=== PATIENT | female | born 1985 | race Hispanic/Latino ===

== ENCOUNTER → 2016-09-15 | Outpatient (CLI) | payer OTHER ==
[~2016-09-15] MED LIST: HYDR-3812 PO; IBUP-1773 PO
--- NOTE | 2016-09-15 13:34 | Diagnostic Imaging Report ---
INDICATION: Pelvic pain. Followup assessment of previously demonstrated thickened endometrium. TECHNIQUE: Multiple real time hart scale sonographic images were obtained of the pelvis transabdominally and endovaginally. CORRELATION STUDY: 08/26/2016 FINDINGS: UTERUS/ENDOMETRIUM: Uterus measures 10.3 x 7.3 x 5.0 cm. The uterus has an unremarkable appearance. The endometrium remains abnormally thickened at 16. There is also an abnormal appearance with very heterogeneous echotexture present. There does appear to be some Doppler vascular signal present as well. RIGHT OVARY: 2.5 x 2.1 x 1.9 cm. Right ovary appearing unremarkable. LEFT OVARY: 2.9 x 2.5 x 3.3 cm. Left ovary appearing unremarkable. Color flow is demonstrated to both ovaries. No significant free pelvic fluid. IMPRESSION: 1. Endometrium does remain abnormally thickened with an irregular echotexture as well as some vascular flow. Findings are nonspecific. However, possibility of endometrial polyp, hyperplasia and/or endometrial malignancy is not excluded. Dictated by: Dictated on workstation # [id number]
== END ==
LOC: RAD 12:30
PROVIDERS: ATTEND Family Medicine
DX: R10.2 Pelvic and perineal pain (principal)
CPT/HCPCS: 76830; 76856

== ENCOUNTER 2016-10-27 09:16 | Outpatient (CLI) | payer OTHER ==
[~2016-10-27] VITALS: Ht 152.4 cm; Wt 72.6 kg
[2016-10-27 09:31] VITALS: BP 123/73
[2016-10-27 10:11] LABS: BASOPHILS % (AUTO) 0 % (0-10); EOSINOPHILS # (AUTO) 0.1 10^3/uL (0.0-0.3); EOSINOPHILS % (AUTO) 2 % (0-10); LYMPHOCYTES # (AUTO) 2.1 X 10^3 (1.0-4.0); LYMPHOCYTES % (AUTO) 39 % (12-44); MEAN CORPUSCULAR HEMOGLOBIN 26 PG (25-34); MEAN CORPUSCULAR HGB CONC 33 G/DL (32-36); MEAN CORPUSCULAR VOLUME 78 FL (80-99); MEAN PLATELET VOLUME 10.1 FL (7.4-10.4); MONOCYTES # (AUTO) 0.4 X 10^3 (0.0-1.0); MONOCYTES % (AUTO) 7 % (0-12); NEUTROPHILS # (AUTO) 2.9 X 10^3 (1.8-7.8); NEUTROPHILS % (AUTO) 52 % (42-75); PLATELET COUNT 285 10^3/uL (130-400); RED BLOOD COUNT 4.79 10^6/uL (4.35-5.85); RED CELL DISTRIBUTION WIDTH 14.6 % (10.0-14.5); WHITE BLOOD COUNT 5.5 10^3/uL (4.3-11.0)
[2016-10-28] MEDS ORDERED: IBUP-1773 PO (08:35)
[2016-10-28] MEDS ORDERED: HYDR-3812 PO (08:35)
== END 2016-10-27 09:55 | disposition home or self-care (01) ==
LOC: PREOP 09:16
PROVIDERS: ATTEND Obstetrics & Gynecology
DX: Z01.812 Encounter for preprocedural laboratory examination (principal); Z11.2 Encounter for screening for other bacterial diseases; R10.2 Pelvic and perineal pain; N94.6 Dysmenorrhea, unspecified; N92.0 Excessive and frequent menstruation with regular cycle; R93.8 Abnormal findings on diagnostic imaging of other specified body structures
CPT/HCPCS: 36415; 84703; 85025; 87081

== ENCOUNTER 2016-10-28 06:06 | Day surgery (SDC) | payer OTHER ==
[~2016-10-28] VITALS: Ht 152.4 cm; Wt 72.6 kg
--- OUTSIDE RECORDS SUMMARY | 2016-10-28 06:10 | XMS REPORT | Continuity of Care Document ---
Author Author [facility] Organization [facility] Address Unknown Phone Unavailable Allergies Medications Problems Date Dx Coded Attending Type Code Diagnosis Diagnosed By 07/14/2015 IBRAHIMA GAY MD Ot R10.9 07/15/2015 IBRAHIMA GAY MD Ot R10.9 07/16/2015 IBRAHIMA GAY MD Ot R10.9 07/22/2015 IBRAHIMA GAY MD Ot R10.2 03/10/2016 IBRAHIMA GAY MD Ot R10.9 UNSPECIFIED ABDOMINAL PAIN 03/10/2016 IBRAHIMA GAY MD Ot R10.2 PELVIC AND PERINEAL PAIN 03/10/2016 IBRAHIMA GAY MD Ot R10.2 PELVIC AND PERINEAL PAIN 09/10/2016 IBRAHIMA GAY MD Ot R10.2 PELVIC AND PERINEAL PAIN 09/16/2016 IBRAHIMA GAY MD Ot R10.2 PELVIC AND PERINEAL PAIN 09/29/2016 IBRAHIMA GAY MD Ot R10.2 PELVIC AND PERINEAL PAIN 09/29/2016 IBRAHIMA GAY MD Ot R10.2 PELVIC AND PERINEAL PAIN 10/20/2016 IBRAHIMA GAY MD Ot R10.9 UNSPECIFIED ABDOMINAL PAIN 10/20/2016 IBRAHIMA GAY MD Ot R10.2 PELVIC AND PERINEAL PAIN 10/20/2016 IBRAHIMA GAY MD Ot R10.2 PELVIC AND PERINEAL PAIN Procedures Results Test Result Range Complete blood count (CBC) with automated white blood cell (WBC) differential - 10/27/16 09:45 Blood leukocytes automated count (number/volume) 5.5 10*3/ uL 4.3-11.0 Blood erythrocytes automated count (number/volume) 4.79 10*6 /uL 4.35-5.85 Venous blood hemoglobin measurement (mass/volume) 12.2 g/dL 11.5-16.0 Blood hematocrit (volume fraction) 37 % 35-52 Automated erythrocyte mean corpuscular volume 78 [foz_us] 80-99 Automated erythrocyte mean corpuscular hemoglobin (mass per erythrocyte) 26 pg 25-34 Automated erythrocyte mean corpuscular hemoglobin concentration measurement ( mass/volume) 33 g/dL 32-36 Automated erythrocyte distribution width ratio 14.6 % 10.0-14.5 Automated blood platelet count (count/volume) 285 10*3/uL 130-400 Automated blood platelet mean volume measurement 10.1 [foz_ us] 7.4-10.4 Automated blood neutrophils/100 leukocytes 52 % 42-75 Automated blood lymphocytes/100 leukocytes 39 % 12-44 Blood monocytes/100 leukocytes 7 % 0-12 Automated blood eosinophils/100 leukocytes 2 % 0-10 Automated blood basophils/100 leukocytes 0 % 0-10 Blood neutrophils automated count (number/volume) 2.9 10*3 1.8-7.8 Blood lymphocytes automated count (number/volume) 2.1 10*3 1.0-4.0 Blood monocytes automated count (number/volume) 0.4 10*3 0.0-1.0 Automated eosinophil count 0.1 10*3/uL 0.0-0.3 Automated blood basophil count (count/volume) 0.0 10*3/uL 0.0-0.1 Blood type T Indirect antibody screen panel - 10/27/16 09:45 ABO+Rh group OP NRG Transfusion band number [id number] NRG Blood group antibody screen NEGATIVE NRG Urine beta human chorionic gonadotropin (hCG) measurement - 10/27/16 09:55 Urine beta human chorionic gonadotropin (hCG) measurement NEGATIVE NEGATIVE Encounters ACCT No. Visit Date/Time Discharge Status Pt. Type Provider Facility Loc./Unit Complaint [id number] 07/21/2015 10:21:00 2014 23:59:59 CLS Outpatient IBRAHIMA GAY MD [facility] RAD PELVIC PAIN [id number] 07/09/2015 09:48:00 2014 23:59:59 CLS Outpatient IBRAHIMA GAY MD [facility] RAD ABD PAIN [id number] 10/27/2016 10:55:00 Document Registration [id number] 10/27/2016 10:11:00 Document Registration [id number] 09/15/2016 12:30:00 ACT Outpatient IBRAHIMA GAY MD [facility] RAD PELVIC PAIN [id number] 08/26/2016 12:36:00 ACT Outpatient IBRAHIMA GAY MD [facility] RAD PELVIC PAIN
--- OUTSIDE RECORDS SUMMARY | 2016-10-28 06:10 | XMS REPORT | Continuity of Care Document ---
Author Author [facility] Organization [facility] Address Unknown Phone Unavailable Allergies Medications Problems [...] ABO+Rh group OP NRG Transfusion band number [id number] NRG Blood group antibody screen NEGATIVE NRG Urine beta human chorionic gonadotropin (hCG) measurement - 10/27/16 09:55 Urine beta human chorionic gonadotropin (hCG) measurement NEGATIVE NEGATIVE Encounters ACCT No. Visit Date/Time Discharge Status Pt. Type Provider Facility Loc./Unit Complaint [id number] 07/21/2015 10:21:00 2014 23:59:59 CLS Outpatient IBRAHIMA GAY MD [facility] RAD PELVIC PAIN [id number] 07/09/2015 09:48:00 2014 23:59:59 CLS Outpatient IBRAHIMA GAY MD [facility] RAD ABD PAIN [id number] 10/27/2016 10:55:00 Document Registration [id number] 10/27/2016 10:11:00 Document Registration [id number] 09/15/2016 12:30:00 ACT Outpatient IBRAHIMA GAY MD [facility] RAD PELVIC PAIN [id number] 08/26/2016 12:36:00 ACT Outpatient IBRAHIMA GAY MD [facility] RAD PELVIC PAIN
[2016-10-28] MEDS ORDERED: NS (IVPB) 50 ML ONE (06:19)
[2016-10-28] MEDS ORDERED: ceFAZolin 1,000 MG (ANCEF) VIAL ONE (06:19)
[2016-10-28 06:28] VITALS: BP 119/76
[2016-10-28] MEDS: LACTATED RINGERS 1,000 ML IV PRN ×2 (06:30→07:58)
--- NOTE | 2016-10-28 06:52 | Progress Note-Pre Operative ---
Pre-Operative Progress Note H&P Reviewed The H&P was reviewed, patient examined and no changes noted. Date H&P Reviewed: Oct 28, 2016 Time H&P Reviewed: 06:45 Pre-Operative Diagnosis: CPP, AUB, Dysmenorrhea, Dysparenia ADITI ASENCIO DO Oct 28, 2016 6:52 am
[2016-10-28] MEDS ORDERED: BUPIVACAINE 0.25% 30 ML (SENSORCAINE) VIAL ONE (06:59)
[2016-10-28] MEDS ORDERED: CATHETER FLUSH 10 ML SYR IV PRN (07:00)
[2016-10-28] MEDS ORDERED: ceFAZolin 1 GM/NS 50 ML IVPB IV ONE ×2 (07:00)
[2016-10-28] MEDS ORDERED: MIDAZOLAM 2 MG/2 ML (VERSED) VIAL ONE (07:07)
[2016-10-28] MEDS ORDERED: fentaNYL INJECTION 100 MCG/2 ML AMP ONE (07:07)
[2016-10-28] MEDS ORDERED: proPOfol 200 MG/20 ML (DIPRIVAN) VIAL IV ONE (07:32)
[2016-10-28] MEDS ORDERED: ONDANSETRON 4 MG/2 ML (SDV) Z0FRAN ONE ×2 (07:32→08:48)
[2016-10-28] MEDS ORDERED: ROCURONIUM 50 MG/5 ML (ZEMURON) VIAL IV ONE (07:32)
[2016-10-28] MEDS ORDERED: LACTATED RINGERS 1,000 ML IV ONE ×2 (07:32→07:53)
[2016-10-28] MEDS ORDERED: DEXAMETHASONE PF 10 MG/ML (DECADRON) VIAL ONE (07:32)
[2016-10-28] MEDS ORDERED: LIDOCAINE PF 2% 10 ML (XYLOCAINE) AMP ONE (07:54)
[2016-10-28] MEDS ORDERED: SEVOFLURANE (ULTANE) 15 ML INHAL SOLN ONE (08:29)
[2016-10-28] MEDS ORDERED: GLYCOPYRROLATE 0.2 MG/ML (ROBINUL) 2 ML VIAL ONE (08:29)
[2016-10-28] MEDS ORDERED: NEOSTIGMINE (BLOXIVERZ ) 1 MG/1ML 10 ML VIAL ONE (08:29)
[2016-10-28] MEDS ORDERED: D5 LR IV SOLUTION 1,000 ML IV SCH (08:32)
--- NOTE | 2016-10-28 08:34 | Discharge Inst-Women's Service ---
Discharge Inst-Women's Serv Depart Medication/Instructions New, Converted or Re-Newed RX: RX on Chart Consults/Follow Up Additional Follow Up: Yes Orders/Referrals Dr. Gates in 2-3 weeks Activity Activity: Activity as Tolerated Driving Instructions: No Driving for 1 Week NO SMOKING: NO SMOKING Nothing Inside Vagina: No Douching, No Moca, No Tampons Diet Discharge Diet: No Restrictions Symptoms to Report to : Bleeding Excessive, Pain Increased, Fever Over 101 Degrees F, Vaginal Bleeding Increase, Questions/Concerns For Any Problems or Questions: Contact Your Physician Skin/Wound Care Infection Signs and Symptoms: Increased Redness, Foul Odor of Wound, Increased Drainage, Skin Itchy or Has a Rash, Increased Swelling, Temperature Above 101 F Operative Area Clean and Dry: Keep Incision Clean/Dry Stitches/Pavithra/Dermabond: Dermabond, Care of Stitches Bathing Instructions: ADITI Smith DO Oct 28, 2016 08:34
[2016-10-28] MEDS ORDERED: IBUP-1773 PO (08:35)
[2016-10-28] MEDS ORDERED: HYDR-3812 PO (08:35)
[2016-10-28] MEDS ORDERED: KETOROLAC 30 MG/ML VIAL ONE (08:42)
[2016-10-28] MEDS ORDERED: fentaNYL INJECTION 100 MCG/2 ML AMP IV PRN (08:45)
[2016-10-28] MEDS ORDERED: HYDROcodone/APAP 5 MG/325 MG (LORTAB) TAB PO PRN (08:45)
[2016-10-28] MEDS ORDERED: ONDANSETRON 4 MG/2 ML (SDV) Z0FRAN IV ONE (08:45)
[2016-10-28] MEDS ORDERED: ONDANSETRON 4 MG/2 ML (SDV) Z0FRAN IVP PRN (08:45)
[2016-10-28] MEDS ORDERED: KETOROLAC 30 MG/ML VIAL IVP ONE (08:45)
[2016-10-28] MEDS: morphine INJ 10 MG/ML 1ML (SYR OR VIAL) IV PRN ×2 (08:46→08:52)
[2016-10-28 09:30] VITALS: BP 125/63
[2016-10-28 09:57] VITALS: BP 127/74
[2016-10-28 10:30] VITALS: BP 124/74
[2016-10-28 12:30] VITALS: BP 124/74
[2016-10-28 12:45] VITALS: BP 124/74
--- NOTE | 2016-10-29 11:39 | OPERATIVE REPORT ---
PROCEDURE PHYSICIAN: HONG ASENCIO DATE OF PROCEDURE: 10/28/2016 PREOPERATIVE DIAGNOSIS: 1. 31-year-old female with chronic pelvic pain. 2. Abnormal uterine bleeding. 3. Dysmenorrhea. 4. Dyspareunia. POSTOPERATIVE DIAGNOSES: 1. 31-year-old female with chronic pelvic pain. 2. Abnormal uterine bleeding. 3. Dysmenorrhea. 4. Dyspareunia. 5. Evidence of endometriosis down the left uterosacral ligament and the left broad ligament. PROCEDURE: D&C with laparoscopic ablation of endometriosis. SURGEON: Dr. Hong Asencio. BRIM PLATER: Nieves Shine APR ANESTHESIA: General endotracheal. ESTIMATED BLOOD LOSS: 50 mL. URINE OUTPUT: 400 mL FLUIDS: 1500 mL of lactated ringer solution. FINDINGS: Normal appearing uterus with a hypervascular ectropion that bleeds to touch. Otherwise grossly normal appearing cervix, normal appearing uterus with some evidence of hyperemic changes on the serosal surface of the fundus as well as endometriosis implants along the serosal surface of the fundus and the left uterosacral ligament at the base all the way up to the base of the broad ligament on the left side. Not incorporating the left ovarian fossa SPECIMEN SENT: Endometrial curettings. INDICATIONS FOR THE PROCEDURE: This 31-year-old female was a consultation to my office for chronic issues with ongoing pelvic pain and dyspareunia. She also reports irregular heavy bleeding. She underwent ultrasound on 2 separate occasions which showed no change in her uterus or was there endometrial thickness. However, due to her abnormal bleeding and attempts at more conservative measures, she wished to proceed with more definitive measures. I discussed with the patient the step by step process and diagnosis would also include laparoscopy at this point as well as D&C. The procedures itself was discussed with the patient in detail as well as the risk, alternatives and doing nothing. The patient wished to proceed despite all risks described. This is all done using interpretation phone in the office. Once all the patient's questions were answered to her satisfaction, consent was obtained and she was taken to operating room. OPERATIVE REPORT IN DETAIL: Once in the operating room, general anesthesia was found to be adequate. She is placed in dorsal lithotomy position, prepped and draped in the normal sterile fashion. She was first examined under anesthesia. The uterus is not enlarged, freely mobile. There is no adnexal fullness or masses appreciated on bimanual examination. A Felix catheter was placed using sterile technique. A weighted speculum is inserted in the patient's vagina. A right angle retractor is used to visualize the cervix. It is grasped at 12 o'clock position using a long Allis clamp. I then gently sound the uterine cavity depth which was found to be 8 cm. I then gently dilate the cervix using Hegar dilators and perform a gentle curettage of the endometrial cavity using a medium endometrial curette. Curettings collected are sent as endometrial curettings. I then place a ELLE uterine manipulator into the cervix. However after I go to remove the Allis clamp there is a significant amount of bleeding noted from the ectropion margin of the cervix. I make this area hemostatic using hand held Bovie cautery, after which there is no active bleeding noted from the area that I previously mentioned. I then remove all the instruments from the patient's vagina short of the Kronner uterine manipulator and take my attention to the abdomen after a change of gloves is performed. Infraumbilically I infiltrate this area using 0.25% Marcaine and make a 5 mm incision and direct a Veress needle through this incision until intraperitoneal placement is confirmed using saline drop test. I then proceed with insufflation using CO2 gas, opening pressure of 5 mmHg is noted. I proceed to maximum pressure of 15 mmHg at which point I remove the Veress needle and introduce a 5 mm blunt trocar through this incision and intraperitoneal placement is confirmed using a laparoscope. I briefly scan the upper abdominal anatomy, which appears normal. I document it with pictures I then have the patient placed in steep Trendelenburg and I am able to visualize the pelvic anatomy as described in my findings above. I then, use a separate trocar site that I place suprapubically 5 mm as well in a similar fashion. Use hook cautery to cauterize the mentioned endometriosis implants after which there is no active bleeding noted from any my dissection planes. I then copiously irrigate the pelvis using normal saline. Once again, no active bleeding is noted from any my dissection planes. I then removed the suprapubic trocar under direct visualization of the laparoscope. There is no active bleeding noted from this site. I then release insufflation from my infraumbilical trocar site and leave this in place until the majority of the intraperitoneal gas is removed, I then remove this trocar and proceed with closing the incision using 4-0 Monocryl in an interrupted subcuticular stitches. Dermabond is applied to the incisions and Band-Aids are placed over these. The patient tolerated the procedure well and was taken to recovery area in stable condition. Felix catheter is removed after the procedure is complete. Lap and sponge counts were correct at the end of the procedure. Instrument count is correct as well. 1 gram of Ancef was given preoperatively for infection prophylaxis. Job ID: [id number] Dictated Date: 10/28/2016 09:34:47 Size Changer Date: 10/29/2016 11:24:52 / didi
== END 2016-10-28 12:50 | disposition home or self-care (01) ==
LOC: SDC 06:06
PROVIDERS: ATTEND Obstetrics & Gynecology
DX: N80.3 Endometriosis of pelvic peritoneum (principal); N94.6 Dysmenorrhea, unspecified; N94.10 Unspecified dyspareunia
CPT/HCPCS: 86850; 86900; 86901; 88305; 94664

== ENCOUNTER → 2017-12-05 | Outpatient (CLI) | payer OTHER ==
[~2017-12-05] MED LIST changes: +ACHD5005 PO; -HYDR-3812 PO
--- NOTE | 2017-12-05 15:26 | Diagnostic Imaging Report ---
INDICATION: Abnormal uterine bleeding. FINDINGS: Transabdominal and transvaginal pelvic sonography was performed. The uterus measures 8.9 x 5.8 x 5.1 cm. No myometrial mass is detected. The majority of the endometrium appears to be of normal thickness at approximately 6 mm. However, there appears to be a questionable mixed echogenicity mass in the fundal endometrium measuring 15 mm x 11 mm x 15 mm. No internal blood flow is seen. The ovaries are not visualized. No adnexal mass or free fluid is detected. IMPRESSION: Endometrial mass in the region of the fundal endometrium. This most likely represents a polyp. Endometrial neoplasm cannot be entirely excluded. No other abnormalities are seen. Dictated by: Dictated on workstation # [id number]
== END ==
LOC: RAD 12:20
PROVIDERS: ATTEND Obstetrics & Gynecology
DX: N93.9 Abnormal uterine and vaginal bleeding, unspecified (principal); N85.8 Other specified noninflammatory disorders of uterus
CPT/HCPCS: 76830; 76856

== ENCOUNTER 2018-01-06 06:10 | Day surgery (SDC) | payer OTHER ==
[~2018-01-06] VITALS: Ht 152.4 cm; Wt 78.9 kg
--- OUTSIDE RECORDS SUMMARY | 2018-01-06 06:25 | XMS REPORT ---
Author Author IBRAHIMA GAY [facility] e[employer] Address Unknown Phone Unavailable Care Team Providers Care Lime Hide Inspector Name Role Phone IBRAHIMA GAY Unavailable Allergies No Known Allergies Problems Problem Type Condition Code Onset Dates Condition Status Assessment Pelvic pain in female R10.2 Active Assessment Calculus of gallbladder without cholecystitis without obstruction K80.20 Active Medications No Known Medications Results No Known Results Summary Purpose eClinicalWorks Submission
--- OUTSIDE RECORDS SUMMARY | 2018-01-06 06:25 | XMS REPORT ---
Author Author IBRAHIMA GAY [facility] Address [address] [place] [address] Care Team Providers Care Machine Hose Cutter Name Role Phone IBRAHIMA GAY Unavailable PROBLEMS Unknown Problems ALLERGIES Unknown Allergies SOCIAL HISTORY No smoking Hx information available PLAN OF CARE VITAL SIGNS MEDICATIONS Medication Instructions Dosage Frequency Start Date End Date Duration Status Diflucan 150 MG Orally Once a day 1 tablet 24h Aug, 1 dose Active RESULTS No Results PROCEDURES No Known procedures IMMUNIZATIONS No Known Immunizations
--- OUTSIDE RECORDS SUMMARY | 2018-01-06 06:25 | XMS REPORT ---
Author Author IBRAHIMA GAY [facility] Address [address] [place] [address] Care Team Providers Care Hide Measuring Machine Operator Name Role Phone IBRAHIMA GAY Unavailable PROBLEMS Type Condition ICD9-CM Code [id number] Code Onset Dates Condition Status SNOMED Code Problem Encounter for dental examination Z01.20 Active [id number] ALLERGIES Unknown Allergies SOCIAL HISTORY No smoking Hx information available PLAN OF CARE VITAL SIGNS MEDICATIONS Unknown Medications RESULTS No Results PROCEDURES No Known procedures IMMUNIZATIONS No Known Immunizations
--- OUTSIDE RECORDS SUMMARY | 2018-01-06 06:25 | XMS REPORT ---
Author Author IBRAHIMA GAY [facility] e[employer] Address Unknown Phone Unavailable Care Team Providers Care Tattoo Identifier Name Role Phone IBRAHIMA GAY Unavailable Allergies No Known Allergies Problems Problem Type Condition Code Onset Dates Condition Status Assessment Abdominal pain, unspecified abdominal location R10.9 Active Medications No Known Medications Results No Known Results Summary Purpose eClinicalWorks Submission
--- OUTSIDE RECORDS SUMMARY | 2018-01-06 06:25 | XMS REPORT ---
Author Author ASHLEIGH Weiss [facility] Address Unknown Care Team Providers Care Sales Support Associate Name Role Phone ASHLEIGH Weiss Unavailable PROBLEMS Type Condition ICD9-CM Code AQL70-SF Code Onset Dates Condition Status SNOMED Code Problem Encounter for dental examination Z01.20 Active 120659538 ALLERGIES No Known Allergies SOCIAL HISTORY Never Assessed PLAN OF CARE Activity Details Follow Up 1 Week Reason:[place] seat #9/[place] VITAL SIGNS MEDICATIONS Unknown Medications RESULTS No Results PROCEDURES Procedure Date Ordered Result Body Site Dental no charge Nov 08, 2016 IMMUNIZATIONS No Known Immunizations MEDICAL (GENERAL) HISTORY Type Description Date Surgical History Laparoscopy 10/28/2016
--- OUTSIDE RECORDS SUMMARY | 2018-01-06 06:25 | XMS REPORT ---
Author Author IBRAHIMA GAY [facility] Address [address] [place] [address] Care Team Providers Care Installation Coordinator Name Role Phone IBRAHIMA GAY Unavailable PROBLEMS Type Condition ICD9-CM Code GLZ21-HB Code Onset Dates Condition Status SNOMED Code Problem Encounter for dental examination Z01.20 Active 157237036 ALLERGIES Unknown Allergies SOCIAL HISTORY No smoking Hx information available PLAN OF CARE VITAL SIGNS MEDICATIONS Unknown Medications RESULTS No Results PROCEDURES No Known procedures IMMUNIZATIONS No Known Immunizations
--- OUTSIDE RECORDS SUMMARY | 2018-01-06 06:25 | XMS REPORT ---
Author Author IBRAHIMA GAY [facility] Address [address] [place] [address] Care Team Providers Care Email Marketing Coordinator Name Role Phone IBRAHIMA GAY Unavailable PROBLEMS Type Condition ICD9-CM Code ZCX36-KF Code Onset Dates Condition Status SNOMED Code Problem Encounter for dental examination Z01.20 Active [id number] ALLERGIES Unknown Allergies SOCIAL HISTORY No smoking Hx information available PLAN OF CARE VITAL SIGNS MEDICATIONS Medication Instructions Dosage Frequency Start Date End Date Duration Status Doxycycline Hyclate 100 MG Orally every 12 hrs 1 tablet 12h Aug, Aug, 07 days Active RESULTS No Results PROCEDURES No Known procedures IMMUNIZATIONS No Known Immunizations
--- OUTSIDE RECORDS SUMMARY | 2018-01-06 06:26 | XMS REPORT ---
Author Author DEIDRA IBRAHIMA Organization [facility] Address [address] [place] [address] Care Team Providers Care Lockstitch Waistband Setter Name Role Phone IBRAHIMA GAY Unavailable PROBLEMS Type Condition ICD9-CM Code PLB75-KZ Code Onset Dates Condition Status SNOMED Code Assessment Well woman exam Z01.419 Aug, Active 303801347 Assessment Vaginal discharge N89.8 Aug, Active 813618360 Assessment Pelvic pain R10.2 Aug, Active 45170595 Assessment Dysuria R30.0 Aug, Active 35105146 ALLERGIES Substance Reaction Event Type Date Status N.K.D.A. Unknown Non Drug Allergy Aug, Unknown SOCIAL HISTORY No smoking Hx information available PLAN OF CARE Activity Details Pending Test PAP TEST, HPV IF ASCUS Pending Test GC/CHLAM PROBE (STATE) Pending Test PDF Report Pending Test Ultrasound : Pelvic, COMPLETE (REFLEX CPT-50524) 1 Year,Reason: VITAL SIGNS Height 5'0" in 2016-08-20 Weight 170.0 lbs 2016-08-20 Heart Rate 78 bpm 2016-08-20 Respiratory Rate 18 2016-08-20 BMI 33.20 kg/m2 2016-08-20 Blood pressure systolic 110 mmHg 2016-08-20 Blood pressure diastolic 78 mmHg 2016-08-20 MEDICATIONS Unknown Medications RESULTS Name Result Date Reference Range TRICHOMONAS (IN HOUSE) 2016-08-20 TRICHOMONAS negative Control + Lot # [id number] Exp date 07/2017 UA W/CULTURE IF INDICATED (IN HOUSE) 2016-08-20 Lot # Exp date Clarity clear Color yellow Odor no GLU neg NATHALIA neg KET neg SG 1.025 BLO 1+ pH 6.5 Protein neg URO 0.2 NIT neg JESS trace Lot # Exp date BACTERIAL VAGINOSIS (IN HOUSE) 2016-08-20 RESULTS negative Control + Lot # [id number] Exp date 04/2017 CULTURE, GENITAL 2016-08-20 Genital Culture, Routine Final report Result 1 Yeast isolated. Result 2 CULTURE, URINE 2016-08-20 Urine Culture, Routine Final report Result 1 PAP TEST, HPV IF ASCUS 2016-08-20 DIAGNOSIS: Specimen adequacy: Clinician provided ICD10: Performed by: . . Note: . PDF Report 2016-08-20 PDF Report1 [facility] Ultrasound : Pelvic, COMPLETE (REFLEX CPT-08195) 2016-08-26 GC/CHLAM PROBE (STATE) 2016-08-20 CHLAMYDIA Neg GC Neg PROCEDURES Procedure Date Ordered Related Diagnosis Body Site No Charge Aug 20, 2016 CULTURE, BACTERIA, OTHER Aug 20, 2016 URINE CULTURE/COLONY COUNT Aug 20, 2016 Preventive Care Est Pt. Age 18-39 Aug 20, 2016 TRICHOMONAS ASSAY W/OPTIC Aug 20, 2016 SPECIMEN HANDLING Aug 20, 2016 URINALYSIS, AUTO, W/O SCOPE Aug 20, 2016 CARDONA VAG, DNA, DIR PROBE Aug 20, 2016 IMMUNIZATIONS No Known Immunizations
--- OUTSIDE RECORDS SUMMARY | 2018-01-06 06:26 | XMS REPORT ---
Author Author LUISITO SWEET [employer] Address Unknown Phone Unavailable Care Team Providers Care Mash Filter Operator Name Role Phone LUISITO SWEET CP Unavailable Allergies, Adverse Reactions, Alerts Substance Reaction Event Type N.K.D.A. Info Not Available Non Drug Allergy Problems Problem Type Condition Code Onset Dates Condition Status Assessment Dental examination Z01.20 Active Assessment Encounter for dental examination Z01.20 Active Medications No Known Medications Procedures Procedure Coding System Code Date INTRAORL-PERIAPICAL 1 FILM 33347 CPT-4 D0220 Jul 25, 2015 BITEWING - SINGLE FILM CPT-4 D0270 Jul 25, 2015 LTD ORAL EVALUATION - PROBLEM FOCUS CPT-4 D0140 Jul 25, 2015 RESIN COMPOS - 1 SURFACE POSTERIOR CPT-4 D2391 Jul 25, 2015 Vital Signs Date/Time: Jul 25, 2015 Blood Pressure Diastolic 95 mmHg Blood Pressure Systolic 164 mmHg Results No Known Results Summary Purpose eClinicalWorks Submission
--- OUTSIDE RECORDS SUMMARY | 2018-01-06 06:26 | XMS REPORT ---
Author Author ASHLEIGH Weiss [facility] Address Unknown Care Team Providers Care Software Qa System Specialist Name Role Phone ASHLEIGH Weiss Unavailable PROBLEMS Type Condition ICD9-CM Code WNH30-QW Code Onset Dates Condition Status SNOMED Code Problem Encounter for dental examination Z01.20 Active [id number] ALLERGIES No Known Allergies SOCIAL HISTORY Never Assessed PLAN OF CARE Activity Details Follow Up 2 Weeks Reason:[place] seat and re eval #9 VITAL SIGNS MEDICATIONS Medication Instructions Dosage Frequency Start Date End Date Duration Status Amoxicillin 500 MG Orally every 6 hrs 1 tablet 6h 13 Oct, 2016 7 days Active RESULTS No Results PROCEDURES Procedure Date Ordered Result Body Site Dental no charge Oct 18, 2016 IMMUNIZATIONS No Known Immunizations MEDICAL (GENERAL) HISTORY Type Description Date Surgical History Laparoscopy 10/28/2016
--- OUTSIDE RECORDS SUMMARY | 2018-01-06 06:26 | XMS REPORT ---
Author Author IBRAHIMA GAY [facility] Address [address] [place] [address] Care Team Providers Care Human Resources Project Manager Name Role Phone IBRAHIMA GAY Unavailable PROBLEMS Type Condition ICD9-CM Code ZEC52-QB Code Onset Dates Condition Status SNOMED Code Problem Encounter for dental examination Z01.20 Active 353214524 ALLERGIES Unknown Allergies SOCIAL HISTORY No smoking Hx information available PLAN OF CARE VITAL SIGNS MEDICATIONS Unknown Medications RESULTS No Results PROCEDURES No Known procedures IMMUNIZATIONS No Known Immunizations
--- OUTSIDE RECORDS SUMMARY | 2018-01-06 06:26 | XMS REPORT ---
Author Author ASHLEIGH Weiss [facility] Address Unknown Care Team Providers Care House Worker Name Role Phone ASHLEIGH Weiss Unavailable PROBLEMS Type Condition ICD9-CM Code [id number] Code Onset Dates Condition Status SNOMED Code Problem Encounter for dental examination Z01.20 Active [id number] ALLERGIES Substance Reaction Event Type Date Status N.K.D.A. Unknown Non Drug Allergy Sep, Unknown SOCIAL HISTORY No smoking Hx information available PLAN OF CARE Activity Details Follow Up 3 Weeks Reason:[place] seat VITAL SIGNS Height 5'0" in 2016-09-23 Blood pressure systolic 128 mmHg 2016-09-23 Blood pressure diastolic 94 mmHg 2016-09-23 MEDICATIONS Unknown Medications RESULTS No Results PROCEDURES Procedure Date Ordered Related Diagnosis Body Site CROWN - PORCELAIN/CERAMIC SUBSTRATE Sep 23, 2016 ANTERIOR Sep 23, 2016 Billing Notes on claim Sep 23, 2016 IMMUNIZATIONS No Known Immunizations
--- OUTSIDE RECORDS SUMMARY | 2018-01-06 06:26 | XMS REPORT ---
Author Author IBRAHIMA GAY [facility] Address [address] [place] [address] Care Team Providers Care Petrol Tanker Driver Name Role Phone IBRAHIMA GAY Unavailable PROBLEMS Type Condition ICD9-CM Code [id number] Code Onset Dates Condition Status SNOMED Code Problem Encounter for dental examination Z01.20 Active [id number] ALLERGIES Unknown Allergies SOCIAL HISTORY No smoking Hx information available PLAN OF CARE VITAL SIGNS MEDICATIONS Unknown Medications RESULTS Name Result Date Reference Range Ultrasound : Pelvic (Transvaginal only) 2016-09-15 PROCEDURES No Known procedures IMMUNIZATIONS No Known Immunizations
--- OUTSIDE RECORDS SUMMARY | 2018-01-06 06:26 | XMS REPORT ---
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 Name Role Phone LUISITO SWEET Unavailable PROBLEMS Unknown Problems ALLERGIES No Known Allergies ENCOUNTERS Encounter Location Date Diagnosis [facility] [id number] [place] [address] [phone] Apr, Dental examination Z01.20 [facility] [address] [place] [address] [phone] Feb, Dental examination Z01.20 [facility] [id number] [place] [address] [id number] Dec, Encounter for dental examination Z01.20 [facility] [id number] [place] [address] [phone] Nov, Dental examination Z01.20 [facility] [id number] [place] [address] [phone] Nov, Dental examination Z01.20 [facility] [id number] [place] [address] [phone] Oct, Dental examination Z01.20 [facility] [id number] [place] [address] [phone] Oct, Dental examination Z01.20 [facility] [id number] [place] [address] [phone] Sep, [facility] [id number] [place] [address] [id number] Sep, Dental examination Z01.20 [facility] [id number] [place] [address] [phone] Sep, Pelvic pain R10.2 [facility] [id number] [place] [address] [phone] Aug, Pelvic pain R10.2 [place] [id number] [place] [address] [phone] Aug, [place] [id number] [place] [address] [phone] Aug, [place] [id number] [place] [address] [phone] Aug, [place] [id number] [place] [address] [phone] Aug, Well woman exam Z01.419 ; Vaginal discharge N89.8 ; Pelvic pain R10.2 and Dysuria R30.0 [facility] [id number] [place] [address] [phone] Feb, Dental examination Z01.20 [facility] [address] [id number] Jul, 2015 Encounter for dental examination Z01.20 and Dental examination Z01.20 [place] [id number] [place] [address] [phone] 29 Jun, 2015 Calculus of gallbladder without cholecystitis without obstruction K80.20 and Pelvic pain in female R10.2 [place] [id number] [place] [address] [phone] 16 Jun, 2015 Abdominal pain, unspecified abdominal location R10.9 [place] [address] [place] [address] [phone] 14 Jun, 2015 Abdominal pain, unspecified abdominal location R10.9 IMMUNIZATIONS No Known Immunizations SOCIAL HISTORY Never Assessed REASON FOR VISIT pain PLAN OF CARE Activity Details Follow Up prn Reason:fillings VITAL SIGNS Blood pressure systolic 139 mmHg 2017-02-16 Blood pressure diastolic 89 mmHg 2017-02-16 MEDICATIONS Unknown Medications RESULTS No Results PROCEDURES Procedure Date Ordered Result Body Site LTD ORAL EVALUATION - PROBLEM FOCUS February 16, 2017 INTRAORL-PERIAPICAL 1 FILM [id number] February 16, 2017 BITEWING - SINGLE FILM February 16, 2017 INSTRUCTIONS MEDICATIONS ADMINISTERED No Known Medications MEDICAL (GENERAL) HISTORY Type Description Date Surgical History Laparoscopy 10/28/2016
--- OUTSIDE RECORDS SUMMARY | 2018-01-06 06:26 | XMS REPORT ---
Author Author IBRAHIMA GAY [employer] Address Unknown Phone Unavailable Care Team Providers Care Channel Executive Name Role Phone IBRAHIMA GAY CP Unavailable Allergies, Adverse Reactions, Alerts Substance Reaction Event Type N.K.D.A. Info Not Available Non Drug Allergy Problems Problem Type Condition Code Onset Dates Condition Status Assessment Abdominal pain, unspecified abdominal location R10.9 Active Medications No Known Medications Procedures Procedure Coding System Code Date COMPREHEN METABOLIC PANEL CPT-4 40553 Jun 25, 2015 URINALYSIS, AUTO, W/O SCOPE CPT-4 06314 Jun 25, 2015 COMPLETE CBC W/AUTO DIFF WBC CPT-4 04947 Jun 25, 2015 URINE CULTURE/COLONY COUNT CPT-4 26369 Jun 25, 2015 Office Visit, New Pt., Level 3 CPT-4 29025 Jun 25, 2015 VENIPUNCT, ROUTINE* CPT-4 78603 Jun 25, 2015 Vital Signs Date/Time: Jun 25, 2015 Cardiac Monitoring Heart Rate 74 bpm Temperature 98.5 F Weight 162.8 lbs Blood Pressure Diastolic 84 mmHg Blood Pressure Systolic 116 mmHg Results Name Result Date Reference Range Unit Abnormality Flag UA W/CULTURE IF INDICATED (IN HOUSE) Summary Purpose [employer] Submission
--- OUTSIDE RECORDS SUMMARY | 2018-01-06 06:27 | XMS REPORT | Continuity of Care Document ---
Author Author [facility] Organization [facility] Address Unknown Phone Unavailable Allergies Active Description Code Type Severity Reaction Onset Reported/Identified Relationship to Patient Clinical Status Yes No Known Drug Allergies [id number] Drug Allergy Unknown N/A 10/27/2016 Medications There is no data. Problems Date Dx Coded Attending Type Code [...] MD Ot R10.2 PELVIC AND PERINEAL PAIN 10/27/2016 IBRAHIMA GAY MD Ot R10.2 PELVIC AND PERINEAL PAIN 10/27/2016 IBRAHIMA GAY MD Ot R10.2 PELVIC AND PERINEAL PAIN 10/27/2016 IBRAHIMA GAY MD Ot R10.9 UNSPECIFIED ABDOMINAL PAIN 10/27/2016 IBRAHIMA GAY MD Ot R10.2 PELVIC AND PERINEAL PAIN 10/27/2016 IBRAHIMA GAY MD Ot R10.2 PELVIC AND PERINEAL PAIN 10/27/2016 FENECH DO, ADITI S Ot N92.0 EXCESSIVE AND FREQUENT MENSTRUATION WITH 10/27/2016 FENECH DO, ADITI S Ot N94.6 DYSMENORRHEA, UNSPECIFIED 10/27/2016 FENECH DO, ADITI S Ot R10.2 PELVIC AND PERINEAL PAIN 10/27/2016 FENECH DO, ADITI S Ot R93.8 ABNORMAL FINDINGS ON DIAGNOSTIC IMAGING 10/27/2016 FENECH DO, ADITI S Ot Z01.812 ENCOUNTER FOR PREPROCEDURAL LABORATORY E 10/27/2016 FENECH DO, ADITI S Ot Z11.2 ENCOUNTER FOR SCREENING FOR OTHER BACTER 10/28/2016 FENECH DO, ADITI S Ot N92.0 EXCESSIVE AND FREQUENT MENSTRUATION WITH 10/28/2016 FENECH DO, ADITI S Ot N94.6 DYSMENORRHEA, UNSPECIFIED 10/28/2016 FENECH DO, ADITI S Ot R10.2 PELVIC AND PERINEAL PAIN 10/28/2016 FENECH DO, ADITI S Ot R93.8 ABNORMAL FINDINGS ON DIAGNOSTIC IMAGING 10/28/2016 FENECH DO ADITI S Ot Z01.812 ENCOUNTER FOR PREPROCEDURAL LABORATORY E 10/28/2016 FENECH DOADITI S Ot Z11.2 ENCOUNTER FOR SCREENING FOR OTHER BACTER 10/28/2016 FENECH DO ADITI S Ot N80.3 ENDOMETRIOSIS OF PELVIC PERITONEUM 10/28/2016 FENECH DO ADITI S Ot N94.10 UNSPECIFIED DYSPAREUNIA 10/28/2016 FENECH DO ADITI S Ot N94.6 DYSMENORRHEA, UNSPECIFIED 10/29/2016 FENECH DOADITI S Ot N80.3 ENDOMETRIOSIS OF PELVIC PERITONEUM 10/29/2016 FENECH DO, ADITI S Ot N94.10 UNSPECIFIED DYSPAREUNIA 10/29/2016 FENECH DO, ADITI S Ot N94.6 DYSMENORRHEA, UNSPECIFIED 11/03/2016 FENECH DOADITI S Ot N80.3 ENDOMETRIOSIS OF PELVIC PERITONEUM 11/03/2016 FENECH DO ADITI S Ot N94.10 UNSPECIFIED DYSPAREUNIA 11/03/2016 LUIS M ADITI AKERS S Ot N94.6 DYSMENORRHEA, UNSPECIFIED 11/16/2016 LUIS M ADITI AKERS Ot N80.3 ENDOMETRIOSIS OF PELVIC PERITONEUM 11/16/2016 LUIS M ADITI AKERS Ot N94.10 UNSPECIFIED DYSPAREUNIA 11/16/2016 LUIS M ADITI AKERS Ot N94.6 DYSMENORRHEA, UNSPECIFIED 01/13/2017 DEIDRA MORALES, IBRAHIMA Lee Ot R10.2 PELVIC AND PERINEAL PAIN 12/05/2017 DEIDRA MORALES, IBRAHIMA Lee Ot R10.2 PELVIC AND PERINEAL PAIN 12/05/2017 DEIDAR MORALES, IBRAHIMA Lee Ot R10.2 PELVIC AND PERINEAL PAIN 12/06/2017 LUIS M ADITI AKERS S Ot N85.8 OTHER SPECIFIED NONINFLAMMATORY DISORDER 12/06/2017 LUIS M ADITI AKERS S Ot N93.9 ABNORMAL UTERINE AND VAGINAL BLEEDING, U 01/02/2018 ADITI ASENCIO DO S Ot N85.8 OTHER SPECIFIED NONINFLAMMATORY DISORDER 01/02/2018 LISAESE ADITI AKERS S Ot N93.9 ABNORMAL UTERINE AND VAGINAL BLEEDING, U 01/02/2018 LISAESE ADITI AKERS S Ot N85.8 OTHER SPECIFIED NONINFLAMMATORY DISORDER 01/02/2018 LUIS M ADITI AKERS S Ot N93.9 ABNORMAL UTERINE AND VAGINAL BLEEDING, U 01/03/2018 LUIS M ADITI AKERS Ot N84.0 POLYP OF CORPUS UTERI 01/03/2018 LUIS M ADITI AKERS Ot Z01.818 ENCOUNTER FOR OTHER PREPROCEDURAL EXAMIN Procedures There is no data. Results Test Result Range Genital Culture, Routine - 08/20/16 16:12 Genital Culture, Routine Note Pap Lb, rfx HPV ASCU - 08/20/16 16:12 DIAGNOSIS: Comment Specimen adequacy: Comment Clinician provided ICD10: Comment Performed by: Comment . . Note: Comment . Comment Urine Culture, Routine - 08/20/16 16:12 Urine Culture, Routine Note Complete blood count (CBC) with automated white blood cell (WBC) differential - 10/27/16 09:45 Blood leukocytes automated count (number/volume) 5.5 10*3/uL 4.3-11.0 Blood erythrocytes automated count (number/volume) 4.79 10*6/uL 4.35-5.85 Venous blood hemoglobin measurement (mass/volume) 12.2 [...] Automated blood platelet mean volume measurement 10.1 [foz_us] 7.4-10.4 Automated blood neutrophils/100 leukocytes 52 % [...] ABO+Rh group OP NRG Transfusion band number [id number] NRG Blood group antibody screen NEGATIVE NRG Methicillin resistant Staphylococcus aureus (MRSA) screening culture - 09:45 Methicillin resistant Staphylococcus aureus (MRSA) screening culture NEG NRG Urine beta human chorionic gonadotropin (hCG) measurement - 10/27/16 09:55 Urine beta human chorionic gonadotropin (hCG) measurement NEGATIVE NEGATIVE Methicillin resistant Staphylococcus aureus (MRSA) screening culture - 10:25 Methicillin resistant Staphylococcus aureus (MRSA) screening culture NEG NRG Encounters ACCT No. Visit Date/Time Discharge Status Pt. Type Provider Facility Loc./Unit Complaint [id number] 12/30/2017 10:06:00 12/30/2017 10:30:00 DIS Outpatient ADITI ASENCIO DO [facility] PREOP AUB,ENDOMETRIAL POLYP [id number] 12/05/2017 12:20:00 12/05/2017 23:59:59 CLS Outpatient ADITI ASENCIO DO [facility] RAD ABN UTERINE BLEEDING [id number] 10/28/2016 06:06:00 10/28/2016 12:50:00 DIS Outpatient ADITI ASENCIO DO [facility] CPP [id number] 10/27/2016 09:16:00 10/27/2016 09:55:00 DIS Outpatient ADITI ASENCIO DO [facility] PREOP CPP [id number] 09/15/2016 12:30:00 09/15/2016 23:59:59 CLS Outpatient IBRAHIMA GAY MD [facility] RAD PELVIC PAIN [id number] 08/26/2016 12:36:00 08/26/2016 23:59:59 CLS Outpatient IBRAHIMA GAY MD [facility] RAD PELVIC PAIN [id number] 07/21/2015 10:21:00 07/21/2015 23:59:59 CLS Outpatient IBRAHIMA GAY MD [facility] RAD PELVIC PAIN [id number] 07/09/2015 09:48:00 07/09/2015 23:59:59 CLS Outpatient IBRAHIMA GAY MD [facility] RAD ABD PAIN [id number] 01/06/2018 07:30:00 PEN Preadmit ADITI ASENCIO DO [facility] AUB,ENDOMETRIAL POLYP [id number] 08/23/2016 13:05:00 Document Registration [id number] 08/24/2016 18:06:00 Document Registration [id number] 08/23/2016 05:05:00 Document Registration
[2018-01-06 06:35] VITALS: BP 119/79
[2018-01-06] MEDS ORDERED: FAMOTIDINE 20MG/2ML IV (PEPCID) IV ONE (06:45)
[2018-01-06 06:50] LABS: BASOPHILS % (AUTO) 0 % (0-10); EOSINOPHILS # (AUTO) 0.2 10^3/uL (0.0-0.3); EOSINOPHILS % (AUTO) 2 % (0-10); HEMATOCRIT 35 % (35-52); HEMOGLOBIN 11.3 G/DL (11.5-16.0); LYMPHOCYTES # (AUTO) 2.1 X 10^3 (1.0-4.0); LYMPHOCYTES % (AUTO) 33 % (12-44); MEAN CORPUSCULAR HEMOGLOBIN 25 PG (25-34); MEAN CORPUSCULAR HGB CONC 33 G/DL (32-36); MEAN CORPUSCULAR VOLUME 75 FL (80-99); MEAN PLATELET VOLUME 9.5 FL (7.4-10.4); MONOCYTES # (AUTO) 0.5 X 10^3 (0.0-1.0); MONOCYTES % (AUTO) 8 % (0-12); NEUTROPHILS # (AUTO) 3.8 X 10^3 (1.8-7.8); NEUTROPHILS % (AUTO) 57 % (42-75); PLATELET COUNT 367 10^3/uL (130-400); RED BLOOD COUNT 4.62 10^6/uL (4.35-5.85); RED CELL DISTRIBUTION WIDTH 14.8 % (10.0-14.5); WHITE BLOOD COUNT 6.6 10^3/uL (4.3-11.0)
[2018-01-06] MEDS ORDERED: LIDOCAINE PF 2% 5 ML (XYLOCAINE) VIAL ONE (06:50)
[2018-01-06] MEDS ORDERED: DEXAMETHASONE 10 MG/ML (DECADRON) 1 ML VIAL ONE (06:50)
[2018-01-06] MEDS ORDERED: ONDANSETRON 4 MG/2 ML (SDV) Z0FRAN ONE (06:50)
[2018-01-06] MEDS ORDERED: proPOfol 200 MG/20 ML (DIPRIVAN) VIAL IV ONE (06:50)
[2018-01-06] MEDS ORDERED: SEVOFLURANE (ULTANE) 15 ML INHAL SOLN ONE ×3 (06:51→07:50)
[2018-01-06] MEDS ORDERED: MIDAZOLAM 2 MG/2 ML (VERSED) VIAL ONE (06:51)
[2018-01-06] MEDS ORDERED: fentaNYL INJECTION 100 MCG/2 ML AMP ONE (06:51)
[2018-01-06] MEDS ORDERED: LACTATED RINGERS 1,000 ML IV PRN (06:54)
[2018-01-06] MEDS ORDERED: BUPIVACAINE 0.25% 30 ML (SENSORCAINE) VIAL ONE (07:00)
--- NOTE | 2018-01-06 07:11 | Progress Note-Pre Operative ---
Pre-Operative Progress Note H&P Reviewed The H&P was reviewed, patient examined and no changes noted. Date Seen by Provider: Jan 06, 2018 Time Seen by Provider: 07:00 Date H&P Reviewed: Jan 06, 2018 Time H&P Reviewed: 07:05 Pre-Operative Diagnosis: AUB, Thickened endometrium, Obesity ADITI ASENCIO DO Jan 06, 2018 7:11 am
--- NOTE | 2018-01-06 07:54 | Progress Note-Post Operative ---
Post-Operative Progess Note Surgeon (s)/Contact Acid Plant Operator Helper (s) Surgeon ADITI ASENCIO DO Contact Acid Plant Operator Helper: none Pre-Operative Diagnosis AUB, Thickened endometrium, Obesity Post-Operative Diagnosis same Procedure & Operative Findings Date of Procedure 01/06/18 Procedure Performed/Findings D and C hysteroscopy Anesthesia Type G- LMA Estimated Blood Loss Estimated blood loss (mL): min Specimens/Packing Specimens Removed endometrial curetting ADITI ASENCIO DO Jan 06, 2018 7:54 am
[2018-01-06] MEDS ORDERED: ONDANSETRON 4 MG/2 ML (SDV) Z0FRAN IVP PRN ×2 (08:00→08:15)
--- NOTE | 2018-01-06 08:03 | Discharge Inst-Women's Service ---
Discharge Inst-Women's Serv Depart Medication/Instructions New, Converted or Re-Newed RX: RX on Chart Consults/Follow Up Additional Follow Up: Yes Orders/Referrals Dr. Asencio in 3-4 weeks Activity Activity: Activity as Tolerated Driving Instructions: You May Drive NO SMOKING: NO SMOKING Diet Discharge Diet: No Restrictions Symptoms to Report to : Bleeding Excessive, Pain Increased, Fever Over 101 Degrees F, Vaginal Bleeding Increase, Questions/Concerns For Any Problems or Questions: Contact Your Physician ADITI ASENCIO DO Jan 06, 2018 8:03 am
[2018-01-06] MEDS ORDERED: D5 LR IV SOLUTION 1,000 ML IV SCH (08:04)
[2018-01-06] MEDS ORDERED: IBUP-1773 PO (08:04)
[2018-01-06] MEDS ORDERED: KETOROLAC 30 MG/ML VIAL IVP ONE (08:15)
[2018-01-06] MEDS: morphine INJ 10 MG/ML 1ML (SYR OR VIAL) IVP PRN ×2 (08:19→08:25)
[2018-01-06 08:55] VITALS: BP 120/79
[2018-01-06 09:25] VITALS: BP 116/65
[2018-01-06 09:55] VITALS: BP 110/64
--- NOTE | 2018-01-06 10:28 | Anesthesia-General Post-Op ---
General Patient Condition Mental Status/LOC: Same as Preop Cardiovascular: Satisfactory Nausea/Vomiting: Absent Respiratory: Satisfactory Pain: Controlled Complications: Absent Post Op Complications Complications None Follow Up Care/Instructions Patient Instructions None needed. Anesthesia/Patient Condition Patient Condition Patient is doing well, no complaints, stable vital signs, no apparent adverse anesthesia problems. ANDRADE BAZAN DO Jan 06, 2018 10:28
[2018-01-06 10:30] VITALS: BP 110/64
[2018-01-06 10:55] VITALS: BP 110/64
--- NOTE | 2018-01-06 14:38 | OPERATIVE REPORT ---
DATE OF SERVICE: 01/06/2018 PREOPERATIVE DIAGNOSES: 1. Abnormal uterine bleeding -- menorrhagia. 2. Thickened endometrium. POSTOPERATIVE DIAGNOSES: 1. Abnormal uterine bleeding -- menorrhagia. 2. Thickened endometrium. PROCEDURE: D and C with hysteroscopy. SURGEON: Hong Gates DO. RIVET FLUNKY: None. ANESTHESIA: LMA. ESTIMATED BLOOD LOSS: Minimal. URINE OUTPUT: 30 mL clear drained prior to the start of the procedure. FLUIDS: 700 mL lactate Ringer solution. FINDINGS: An atrophic-appearing endometrial cavity with some darkened what appears to be blood clot tissue surrounding the lining of the uterus extending into bilateral tubal ostia, grossly normal cervix, grossly normal vaginal mucosa and external female genitalia. SPECIMENS SENT: Endometrial curettings. INDICATIONS FOR PROCEDURE: This 32-year-old female with a repeat consultation in my office for continued issues with heavy bleeding. We discussed options for addressing her bleeding including D and C. She thought that the D and C would be the best option for her. Risks of the procedure were discussed with the patient in detail including risk of anesthesia, risk from bleeding, infection, risk of damaging the uterus. After all of her questions were answered, consent was obtained and the patient was taken to the operating room. DESCRIPTION OF PROCEDURE: Once in the operating room, LMA anesthesia was found to be adequate. She was placed in the dorsal lithotomy position, prepped and draped in normal sterile fashion. Weighted speculum inserted in the patient's vagina. A right angle retractor was used to visualize the cervix, which was grasped at 12 o'clock position using a long Allis clamp. I then gently sounded the uterine cavity depth was found to be 7 cm and gently dilated the cervix using Zulema dilators and performed a paracervical block at 3 and 9 o'clock positions using 0.25% Marcaine, 5 mL were used at each injection site. Care was taken to aspirate before injecting. After which, I then introduced a 5 mm hysteroscope using normal saline as my visual medium. I used the Tynker fluid management device in order to obtain visualization of the endometrial cavity, which appears to be grossly normal with no endometrial neoplasms identified. The endometrium itself appears to be atrophic at which point I removed the hysteroscope and performed a gentle curettage and collect some endometrial curettings for pathology. After that, all other instruments were removed from the patient's vagina. The patient tolerated the procedure well and was taken to recovery area in stable condition. Lap and sponge counts were correct at the end of the procedure. Instrument count was correct as well. Job ID: [id number] DocumentID: [id number] Dictated Date: 01/06/2018 08:14:35 Veterans Services Specialist Date: 01/06/2018 14:38:05 Dictated By: DO JEAN-PIERRE MONREAL
== END 2018-01-06 10:55 | disposition home or self-care (01) ==
LOC: SDC 06:10
PROVIDERS: ATTEND Obstetrics & Gynecology
DX: N92.0 Excessive and frequent menstruation with regular cycle (principal); R93.8 Abnormal findings on diagnostic imaging of other specified body structures
CPT/HCPCS: 36415; 84703; 85025; 86850; 86900; 86901; 88305; 94664